=== PATIENT | male | born 1950 | race Caucasian/White ===

== ENCOUNTER → 2024-07-29 13:41 | Outpatient (CLI) | payer MEDICARE, SELFPAY ==
--- NOTE | 2024-07-29 13:42 | DI.CT.S_ITS ---
PROCEDURE: CT CHEST WO CON INDICATIONS: ILD, worsening resp failure, eval for change TECHNIQUE: Noncontrast 5 mm thick sections acquired from the pulmonary apices to the posterior costophrenic angles. 1 mm lung window, 5 mm thick coronal and sagittal and 7 mm axial MIP reformats were then acquired. For radiation dose reduction, the following was used: automated exposure control, adjustment of mA and/or kV according to patient size. COMPARISON: [facility], CT, CT HIGH RESOLUTION CHEST, 09/17/2023, 17:11. FINDINGS: Image quality: Diagnostic. Lower Neck: No enlarged lymph nodes. Thyroid: No thyroid nodules which require sonographic follow up, per consensus guidelines. Axillae: No enlarged lymph nodes. Chest Wall: Unremarkable. Bones: Unremarkable. Lungs and Pleura: No pneumothorax or pleural effusions. Basilar predominant peripheral reticulation without subpleural sparing. No honeycombing is present. Moderate centrilobular emphysema. Small lung hernia along the posterior left lower lobe. Stable juxtapleural nodules. Stable 4 millimeter solid nodule, right upper lobe (series 3, image 68). Heart: Heart size is enlarged, with three-vessel coronary artery calcification. No pericardial effusion. Thoracic Vessels: Dilated main pulmonary artery, measuring 4.3 centimeter. Mediastinum and Celestina: Prominent mediastinal lymph nodes, presumably due to the presence of interstitial lung disease. Esophagus: No wall thickening. Moderate hiatal hernia. Upper Abdomen: Cirrhotic liver morphology. Normal size of the spleen. Elevation of the left hemidiaphragm, probably posttraumatic. IMPRESSION: Probable UIP pattern of interstitial lung disease without significant change compared with prior. Differential includes combined pulmonary fibrosis and emphysema. Pulmonary hypertension. Reactive mediastinal lymph nodes. Cirrhotic liver morphology. Consider HCC screening. 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 Dictated by: Tal Garay M.D. on 07/29/2024 at 15:04 Approved by: Tal Garay M.D. on 07/29/2024 at 15:14
== END ==
PROVIDERS: PCP Internal Medicine; Referring Provider Internal Medicine Critical Care Medicine; Visit Provider Internal Medicine Critical Care Medicine
DX: J84.10 Pulmonary fibrosis, unspecified (principal); J98.4 Other disorders of lung; I27.20 Pulmonary hypertension, unspecified; I51.7 Cardiomegaly; I25.10 Atherosclerotic heart disease of native coronary artery without angina pectoris; R91.8 Other nonspecific abnormal finding of lung field; K44.9 Diaphragmatic hernia without obstruction or gangrene
CPT/HCPCS: 71250